=== PATIENT | female | born 1965 | race African-American/Black ===

== ENCOUNTER 2017-10-05 07:23 | Emergency (ER) | payer OTHER ==
[2017-10-05 07:51] VITALS: BP 166/87; PULSE 98; TEMP 99.5; BMI 23.6
--- NOTE | 2017-10-05 08:30 | PDOC ---
History of Present Illness - General Chief Complaint: Cold Symptoms Stated Complaint: R/O FLU Time Seen by Provider: 10/05/17 07:59 History Source: Patient Exam Limitations: No Limitations - History of Present Illness Initial Comments: 10/05/17 08:29 52F with h/o Dm2 on metformin presents cough, sore throat, sinus congestion and body aches since Monday morning. No sick contacts at home possibly at work. Feels very weak, loss of appetite recently. Admits to chills. Did not receive flu shot this year. 10/05/17 08:46 10/05/17 08:47 10/05/17 09:42 Past History - Past Medical History Allergies/Adverse Reactions: Allergies Allergy/AdvReac Type Severity Reaction Status Date / Time No Known Drug Allergies Allergy Verified 10/05/17 07:41 Home Medications: Ambulatory Orders FA/Mv,Ca,Iron,Min/Lycopene/Lut [Centrum Tablet] 1 each PO DAILY 04/30/15 COPD: No Diabetes: Yes (BORDERLINE) HTN: Yes ("NO MEDS") - Immunization History Immunization Up to Date: Yes - Suicide/Smoking/Psychosocial Hx Smoking Status: Yes Smoking History: Current every day smoker Have you smoked in the past 12 months: Yes Number of Cigarettes Smoked Daily: 10 Information on smoking cessation initiated: No 'Breaking Loose' booklet given: 05/01/15 Hx Alcohol Use: No Drug/Substance Use Hx: No Substance Use Type: Alcohol, Marijuana Hx Substance Use Treatment: No Review of Systems - Review of Systems Able to Perform ROS?: Yes Constitutional: Yes: Chills, Fever, Night Sweats, Weakness HEENTM: Yes: Throat Pain Respiratory: Yes: Cough Cardiac (ROS): No: Symptoms Reported ABD/GI: No: Symptoms Reported : No: Symptoms Reported Musculoskeletal: Yes: Symptoms Reported, Muscle Pain Integumentary: No: Symptoms Reported Neurological: No: Symptoms reported All Other Systems: Reviewed and Negative *Physical Exam - Vital Signs Last Vital Signs Temp Pulse Resp BP Pulse Ox 99.5 F 98 H 16 166/87 98 10/05/17 07:42 10/05/17 07:42 10/05/17 07:42 10/05/17 07:42 10/05/17 07:42 - Physical Exam General Appearance: Yes: Nourished, Appropriately Dressed. No: Apparent Distress HEENT: positive: EOMI, PAM. negative: Tonsillar Exudate Neck: positive: Lymphadenopathy (R), Lymphadenopathy (L) Respiratory/Chest: positive: Lungs Clear, Normal Breath Sounds. negative: Chest Tender, Respiratory Distress Cardiovascular: positive: Regular Rhythm, S1, S2, Tachycardia Gastrointestinal/Abdominal: positive: Normal Bowel Sounds, Flat, Soft. negative : Tender Musculoskeletal: positive: Normal Inspection Extremity: positive: Normal Capillary Refill, Normal Inspection, Normal Range of Motion Integumentary: positive: Normal Color, Dry, Warm Neurologic: positive: Fully Oriented, Alert, Normal Mood/Affect, Normal Response , Motor Strength 01/13 ED Treatment Course - LABORATORY CBC & Chemistry Diagram: 10/05/17 08:34 10/05/17 08:34 - RADIOLOGY Radiology Studies Ordered: Category Date Time Status CHEST PA & LAT [RAD] Stat Radiology 10/05/17 08:28 Ordered Medical Decision Making - Medical Decision Making 10/05/17 08:49 52F with pmh of dm2 presenting with cold symptoms and body chills. flu and strep swab., basic labs. 10/05/17 09:50 All labs negative, flu and strep neg. Xray chest neg. Will give motrin and D/C *DC/Admit/Observation/Transfer Diagnosis at time of Disposition: Viral sinusitis - Discharge Dispostion Disposition: HOME Condition at time of disposition: Improved Admit: No - Referrals Referrals: Herman Kim MD [Primary Care Provider] - - Patient Instructions Printed Discharge Instructions: How to Avoid a Cold or Flu, DI for Common Cold Additional Instructions: Come back to the ER for any new, worsening or concerning symptoms. Follow up with your primary physician within the next 4-5 days. - Post Discharge Activity Forms/Work/School Notes: Back to Work
[2017-10-05 09:10] LABS: HEMATOCRIT 45.5 % (32.4-45.2); MCH 27.6 pg (25.7-33.7); MCHC 33.1 g/dl (32.0-36.0); MEAN CELL VOLUME 83.4 fl (80-96); MEAN PLT VOLUME 8.1 fl (7.5-11.1); PLATELET COUNT 241 K/MM3 (134-434); RBC 5.45 M/mm3 (3.60-5.2); RDW 14.5 % (11.6-15.6); WHITE BLOOD COUNT 4.7 K/mm3 (4.0-10.0)
[2017-10-05 09:24] LABS: ALBUMIN 3.9 g/dl (3.4-5.0); ALK PHOS 91 U/L (45-117); ANION GAP 12 (8-16); BILIRUBIN,TOTAL 0.3 mg/dL (0.2-1.0); BLOOD UREA NITROGEN 10 mg/dL (7-18); CALCIUM 9.3 mg/dL (8.5-10.1); CHLORIDE 95 mmol/L (98-107); CO2 27 mmol/L (21-32); CREATININE 0.9 mg/dL (0.55-1.02); GLUCOSE,RANDOM 193 mg/dL (74-106); POTASSIUM 3.4 mmol/L (3.5-5.1); SGOT/AST 28 U/L (15-37); SGPT/ALT 33 U/L (12-78); SODIUM 134 mmol/L (136-145); TOT PROT 8.5 g/dl (6.4-8.2)
[2017-10-05] MEDS ORDERED: IBUPROFEN 600 MG TABLET (FP) PO ONE ×2 (09:49→09:53)
--- NOTE | 2017-10-05 09:58 | PDOC ---
Attending Attestation - HPI HPI: 10/05/17 09:58 The patient is a 52 year old female with a significant past medical history of diabetes (on metformin) who presents to the ED with 2 days of cough, sore throat , nasal congestion and generalized body aches. Patient also reports generalized weakness, loss of appetite and chills associated with present symptoms. Denies fever. Denies abdominal pain, nausea, vomiting, or diarrhea. Patient did not receive flu shot this year. - Physicial Exam PE: 10/05/17 09:58 Vitals: Triage Vital signs reviewed General Appearance: no acute distress, well nourished well developed, Head: Atraumatic, normocephalic Cardiac: Regular rate and rhythm, no murmurs, no rubs, no gallops, Lungs: Clear to auscultation bilateral, good air movement bilaterally, Extremities: Full range of motion to all extremities, no cyanosis, clubbing, or edema Skin: Warm and dry, no rashes or lesions, no petechiae Psych: normal mood, normal affect <Estefani Hardy - Last Filed: 10/05/17 09:58> - Resident Resident Name: Abhinav Pereyra - ED Attending Attestation I have performed the following: I have examined & evaluated the patient, The case was reviewed & discussed with the resident, I agree w/resident's findings & plan, Exceptions are as noted - Medical Decision Making 10/05/17 15:21 History and examination consistent with influenza-like illness. Patient hemodynamically stable well-appearing no apparent distress. No indication for Tamiflu at this time given that symptoms started greater than 48 hours ago. Patient was counseled at length regarding smoking cessation She'll follow-up with her doctor this week Findings, the need for follow-up, strict return instructions discussed with patient. <True Grant - Last Filed: 10/05/17 15:22>
[2017-10-05 10:18] LABS: URINE APPEARANCE SLCLOUDY; URINE BILIRUBIN NEGATIVE (NEGATIVE); URINE BLOOD NEGATIVE (NEGATIVE); URINE GLUCOSE (UA) 1+ (NEGATIVE); URINE KETONE 1+ (NEGATIVE); URINE NITRITE NEGATIVE (NEGATIVE); URINE UROBILINOGEN NEGATIVE mg/dL (0.2-1.0)
[2017-10-05 10:43] LABS: URINE COLOR DK YELLOW; URINE LEUK ESTERASE 2+ (NEGATIVE); URINE PROTEIN 2+ (NEGATIVE)
[2017-10-05 11:08] LABS: EPI CELLS RARE /HPF (FEW); URINE HYALINE CAST 4 /lpf; URINE MUCUS MODERATE
[2017-10-05 11:27] LABS: ANISOCYTOSIS 0; MACROCYTOSIS 0; PLATELET ESTIMATE NORMAL
== END 2017-10-05 10:05 | disposition home or self-care (01) ==
LOC: JER 07:23
DX: J01.80 Other acute sinusitis (principal); B97.89 Other viral agents as the cause of diseases classified elsewhere
CPT/HCPCS: 36415; 71046-TC; 80053; 81003; 81015; 85025; 87070; 87077; 87430; 87804; 99282-25

== ENCOUNTER 2020-07-21 14:05 | Emergency (ER) | payer OTHER ==
[2020-07-21] MEDS ORDERED: IBUPROFEN 600 MG TABLET (FP) PO ONE ×2 (14:13→14:21)
[2020-07-21] MEDS ORDERED: ONDANSETRON *ODT* 4 MG TABLET SL ONE (14:13)
[2020-07-21 14:14] VITALS: BMI 24.0
[2020-07-21] MEDS ORDERED: ONDANSETRON *ODT* 4 MG TABLET ONE (14:22)
[2020-07-21 16:23] VITALS: BP 168/88; PULSE 87; TEMP 97.9
== END 2020-07-21 16:00 | disposition home or self-care (01) ==
LOC: JER 14:05
DX: J06.9 Acute upper respiratory infection, unspecified (principal)
CPT/HCPCS: 87804; 99283-25; C9803; Q0162; U0003

== ENCOUNTER 2020-09-10 11:27 | Emergency (ER) | payer OTHER ==
[2020-09-10 11:40] VITALS: TEMP 97.2; BMI 25.1
[2020-09-10] MEDS ORDERED: LACTATED RINGERS SOLUTION 1000 ML INFUS.BAG IV ONE (12:35)
[2020-09-10 12:46] VITALS: BP 123/86; PULSE 93
[2020-09-10 13:28] LABS: BASO % 0.7 % (0-2.0); EOS % 0.6 % (0-4.5); HEMATOCRIT 45.9 % (32.4-45.2); HEMOGLOBIN 15.3 GM/dL (10.7-15.3); LYMPH % 17.5 % (8-40); MCHC 33.3 g/dl (32.0-36.0); MEAN CELL VOLUME 87.1 fl (80-96); MEAN PLT VOLUME 9.1 fl (7.5-11.1); MONO % 13.6 % (3.8-10.2); NEUT % 67.6 % (42.8-82.8); PLATELET COUNT 280 K/MM3 (134-434); RBC 5.28 M/mm3 (3.60-5.2); RDW 15.2 % (11.6-15.6); WHITE BLOOD COUNT 7.3 K/mm3 (4.0-10.0)
[2020-09-10 13:36] LABS: PROTHROMBIN TIME (PATIENT) 12.3 SEC (9.7-13.0)
[2020-09-10 13:39] LABS: ACTIVATED PTT 27.5 SECONDS (25.2-36.5)
[2020-09-10 13:43] LABS: CHLORIDE 102 mmol/L (98-107); SODIUM 139 mmol/L (136-145)
[2020-09-10 13:45] LABS: CALCIUM 9.6 mg/dL (8.5-10.1)
[2020-09-10 13:46] LABS: ALBUMIN 3.9 g/dl (3.4-5.0); ANION GAP 13 MMOL/L (8-16); BLOOD UREA NITROGEN 9.1 mg/dL (7-18); CO2 25 mmol/L (21-32); GLUCOSE,RANDOM 142 mg/dL (74-106)
[2020-09-10 13:49] LABS: CREATININE 0.8 mg/dL (0.55-1.3); SGOT/AST 12 U/L (15-37); SGPT/ALT 23 U/L (13-61)
[2020-09-10 13:50] LABS: BILIRUBIN,TOTAL 0.6 mg/dL (0.2-1); TOT PROT 7.7 g/dl (6.4-8.2)
[2020-09-10 13:51] LABS: ALK PHOS 81 U/L (45-117)
== END 2020-09-10 14:35 | disposition home or self-care (01) ==
LOC: JER 11:27
DX: R00.2 Palpitations (principal)
CPT/HCPCS: 36415; 71045-TC-FY; 80053; 82550; 82962; 84443; 84484; 85025; 85027; 85610; 85730; 93005; 93010; 99285-25

== ENCOUNTER 2021-09-10 10:18 | Emergency (ER) | payer OTHER ==
[2021-09-10 10:46] VITALS: BP 134/84; PULSE 96; TEMP 97.9; BMI 23.7
[2021-09-13 17:08] LABS: SARS-CoV-2 NAA Detected (Not Detected)
== END 2021-09-10 11:30 | disposition home or self-care (01) ==
LOC: JER 10:18
DX: J06.9 Acute upper respiratory infection, unspecified (principal)
CPT/HCPCS: 87804; 87807; 99283-25; C9803; U0003; U0005